=== PATIENT | male | born 1995 | race Caucasian/White ===

== ENCOUNTER 2024-10-25 01:48 | Emergency (ER) | payer OTHER, SELFPAY ==
[2024-10-25 01:54] VITALS: BP 146/89
[2024-10-25 02:18] VITALS: BMI 24.6
[2024-10-25 02:27] VITALS: BP 122/73
[2024-10-25 02:49] LABS: Hematocrit 38.9 % (39.0-52.0); Hemoglobin 13.7 g/dL (13.0-18.0); Mean Corp Hgb Conc. 35.2 g/dL (33.0-37.0); Mean Corpuscular Volume 86.6 fL (80.0-94.0); Nucleated Red Blood Cells % 0 % (-); Platelet Count 215 10^3/uL (130-400); Red Cell Dist. Width 11.9 % (11.5-14.5)
[2024-10-25 03:00] VITALS: BP 114/69
[2024-10-25 03:08] LABS: ALT (SGPT) 24 U/L (0-50); AST (SGOT) 24 U/L (17-59); Albumin 4.7 g/dl (3.5-5.0); Alkaline Phosphatase 34 U/L (38-126); Blood Urea Nitrogen 19 mg/dl (9-20); Calcium 9.7 mg/dl (8.4-10.2); Carbon Dioxide 24 mmol/L (22-30); Chloride 108 mmol/L (98-107); Estimated Creatinine Clearance > 125 ml/min; Glucose 114 mg/dl (70-99); Potassium 4.0 mmol/L (3.5-5.1); Sodium 140 mmol/L (135-145); Total Protein 7.2 g/dl (6.3-8.2); eGFR > 60.00
--- NOTE | 2024-10-25 03:21 | ED.GENMED ---
History of Present Illness
General
Chief Complaint: Breathing Problem
Source: patient
Exam Limitations: none
Time Seen by Provider: 10/25/24 02:35
Nursing documentation reviewed up to this point in time: agreed with
History of Present Illness
History of Present Illness:
Note:
CHIEF COMPLAINT(S)
Tightness in the center of the chest.
HISTORY OF PRESENT ILLNESS
The patient is a 29-year-old male who presents with a chief complaint of persistent tightness in the center of his chest since approximately 9 p.m. He describes the sensation as a tight feeling without radiation to other areas. The patient reports
experiencing similar sensations intermittently in the past but cannot recall the exact onset or first occurrence. There are no clear alleviating or aggravating factors associated with the sensation. He denies any associated pain during deep breaths.
SOCIAL HISTORY
The patient has a history of smoking cigarettes but switched to vaping approximately two to three years ago. He does not currently engage in other forms of tobacco use regularly. 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
PHYSICAL EXAM
- General: Alert, no acute distress.
- Cardiovascular: Heart rhythm is regular, no signs of edema.
- Respiratory: Clear lung sounds, respirations non-labored.
PLAN
The plan includes administering a breathing treatment to assess its effectiveness in relieving the chest tightness.
DIFFERENTIAL DIAGNOSIS
The Differential Diagnosis includes, in no particular order and is not limited to:
1. Gastroesophageal reflux disease (GERD)
2. Anxiety or panic attack
3. Musculoskeletal chest pain
4. Costochondritis
5. Asthma or bronchospasm
6. Myocardial ischemia
7. Pulmonary embolism
8. Pneumothorax
9. Aortic dissection
10. Pericarditis
Disposition:
SUMMARY OF ENCOUNTER
A 29-year-old male presented to the emergency department with intermittent chest tightness. He has a history of vaping but no other significant risk factors. Initial lab work and chest x-ray were performed and returned normal results. At the time of
reassessment, the patient was asymptomatic and expressed a desire to be discharged.
ASSESSMENT
The differential diagnoses considered include gastroesophageal reflux disease (GERD), anxiety, musculoskeletal chest pain, costochondritis, asthma, myocardial ischemia, and other potential causes of chest tightness. Given the normal lab results and
imaging, the immediate concern for acute cardiac events or life-threatening conditions was reduced.
PLAN
The patient was advised to establish follow-up care with a family medicine physician to monitor and further investigate the underlying cause of his chest symptoms. He was encouraged to cease vaping as part of lifestyle modifications.
FOLLOW-UP INSTRUCTIONS
The patient should schedule a follow-up appointment with a family medicine physician for further evaluation and management.
MEDICAL DECISION MAKING
- Number and Complexity of Problems Addressed: Chronic conditions affecting care with differential diagnosis including gastroesophageal reflux disease (GERD), anxiety, musculoskeletal chest pain, costochondritis, asthma, myocardial ischemia,
pulmonary embolism, pneumothorax, aortic dissection, and pericarditis.
- Data:
Category 1: Test results were reviewed, including lab work and chest x-ray, both of which were normal.
- Risk: Consideration of Admission/Observation: Escalation of care including admission/observation was considered given the complexity and risk of the patients presenting complaint. However, ultimately the patient is deemed safe for outpatient
management with close follow-up. The work-up was reassuring, did not reveal any acute life/organ-threatening processes, the patients symptoms were well-controlled upon reevaluation, reexamination was reassuring, the patient was agreeable with
discharge, and reliable for follow-up.
PATIENT EDUCATION AND COUNSELING
The patient was educated about the potential impact of vaping on respiratory health and encouraged to quit vaping.
DIAGNOSIS
Chest pain, unspecified (R07.89)
Phy Exam
General Physical Exam
General Presentation: well appearing and no apparent distress
General Skin: warm and dry
General Habitus: normal
General Mental: alert
General Hydration: appears well hydrated
ENT Exam
ENT Exam: EOMI, pharynx normal, neck supple and normocephalic
Eye Exam
Eye Exam: PERRL, cornea clear and conjunctiva normal
Cardiovascular Exam
Cardiovascular Exam: regular rate/rhythm, no edema, no murmur and normal peripheral pulses
Pulmonary Exam
Pulmonary Exam: lungs clear, no respiratory distress, no rales, no crackles, no rhonchi, no stridor, no wheezing and no cough
Gastrointestinal Exam
Gastrointestinal Exam: normal bowel sounds, non tender, soft, no organomegaly, no pulsatile mass and non distended
Neurological Exam
Neurological Exam: alert, oriented x3, no motor deficits and speech normal
Musculoskeletal Exam
Musculoskeletal Exam: full ROM and no edema
Skin Exam
Skin Exam: normal color, warm/dry, no rash and no petechia
Psychiatric Exam
Psychiatric Exam: normal mood/affect
Course
Orders/Labs/Results
Orders:
Orders
10/25/24 02:01
ECG [Electrocardiogram (*1)] Urgent
Reason for Study: Chest Pain
Cardiology Consult: Unknown
EKG- Treatment ONCE
10/25/24 02:26
Complete Blood Count/With Diff Urgent
Comprehensive Metabolic Panel Urgent
Troponin I Urgent
10/25/24 03:20
Ipratropium/Albuterol Sulfate [Duoneb] 3 ml INH R NOW ONE
10/25/24 04:14
CR Chest - 2 Views Urgent
Comment:
Reason For Exam: dyspnea
Abnormal Lab Results
10/25/24
02:26
RBC 4.49 L 10^6/uL
(4.70-6.10)
Hct 38.9 L %
(39.0-52.0)
MPV 11.0 H fL
(7.4-10.4)
Absolute Monos (auto) 0.7 H 10^3/uL
(0.1-0.6)
Monocytes % 10.1 H %
(1.7-9.3)
Chloride 108 H mmol/L
(98-107)
Glucose 114 H mg/dl
(70-99)
Alkaline Phosphatase 34 L U/L
(38-126)
10/25/24 02:26
10/25/24 02:26
Vital Signs
Initial and Last Documented VS:
Initial Vital Signs
Temp Pulse Resp BP Pulse Ox
97.9 F 67 20 146/89 99
10/25/24 01:54 10/25/24 01:54 10/25/24 01:54 10/25/24 01:54 10/25/24 01:54
Last Documented Vital Signs
Temp Pulse Resp BP Pulse Ox
97.9 F 61 17 114/68 98
10/25/24 01:54 10/25/24 06:30 10/25/24 06:30 10/25/24 06:00 10/25/24 06:18
*Radiology
Radiology exam reviewed: all reviewed NAD by ED Provider
*Pulse Oximetry
SaO2: 99
Oxygen Mode of Delivery: Room air
Patient hypoxic: no
*Critical Care Note
Total Time (30-74mins, 75-104mins- exclusive of procedures): Not Applicable
ED Attending Note
-
Portions of this chart may have been created with voice recognition software.� Occasional wrong word or��sound alike� substitutions may have occurred due to the inherent limitations of voice recognition software.
Discharge Plan
Departure
Patient Disposition: Home (Routine Discharge)
Date of Disposition: 10/25/24
Time of Disposition: 06:36
Patient with high blood pressure during this ER visit?: Yes
Condition: Good
Discharge Problem:
Chest pain
Instructions: Chest Pain (DC), BLOOD PRESSURE
Prescriptions:
No Action
No Current Medications
0
Referrals:
[facility] [Provider Group] - Call in 1-3 days for appt
UNKNOWN - PT DOES,NOT KNOW [Family Provider]
Stand Alone Forms: Return to Work
Activity Restrictions/Additional Instructions:
Thank You for choosing [facility].
It was a pleasure meeting you and taking part in your care. We hope for your continued healing and wellness.
Please read discharge instructions in their entirety. However, they are for general education and may not describe your exact diagnosis at discharge. Information on your ER visit and medical conditions were discussed with you along with appropriate
follow up information...
If indicated, please take your medications as instructed and indicated on discharge paperwork.
Please schedule a follow up appointment as directed. Call to schedule an appointment
Please return to the emergency department with ANY change in, persisting, or worsening of symptoms. If any of your symptoms do not improve, or persist, or become more severe within 6-12 hours, please return to the emergency department for further
care.
Please return to the emergency department if you develop a headache, neck pain/stiffness, fever greater than 100.4F, chest pain, shortness of breath, persistent nausea, vomiting, slurred speech, difficulty walking, numbness/tingling, weakness, signs
of infection or any other symptoms that are worrisome to you.
If you have any questions or concerns please do not hesitate to call the Hospital at or E-mail me directly at [email or web address]
Interventions
Interventions:
*Risk Screen - Suicide Last Done: 10/25/24 01:54
*General Assessment Last Done: 10/25/24 01:54
*Neglect/Abuse Screening Last Done: 10/25/24 01:54
*ED- Fall Risk Assessment Last Done: 10/25/24 01:54
*ED COVID-19 Vaccine History Last Done: 10/25/24 01:54
ED- Cardiac Assessment Last Done: 10/25/24 02:31
ED- Pulmonary Assessment Last Done: 10/25/24 02:31
Discharge Date and Time
Print Language: VENEZUELAN
[2024-10-25 03:22] LABS: Troponin I < 0.012 ng/ml
[2024-10-25] MEDS: DUONEB 3 ML INH (03:27)
[2024-10-25 04:00] VITALS: BP 120/60
[2024-10-25 05:00] VITALS: BP 110/61
[2024-10-25 06:00] VITALS: BP 114/68
== END 2024-10-25 06:52 | disposition home or self-care (01) ==
LOC: EMR 01:48
PROVIDERS: EMERGENCY PHYSICIAN Student in an Organized Health Care Education/Training Program
DX: R07.89 Other chest pain (principal); R06.02 Shortness of breath; R03.0 Elevated blood-pressure reading, without diagnosis of hypertension; F17.290 Nicotine dependence, other tobacco product, uncomplicated
CPT/HCPCS: 99283; 94640; 71046; 80053; 84484; 85025; 93005